=== PATIENT | male | born 1980 | race Caucasian/White ===

== ENCOUNTER → 2025-08-22 | Outpatient (CLI) | payer OTHER ==
[2025-08-22 13:55] LABS: PLATELET COUNT, AUTOMATED 279 10^3/uL (150-450)
[2025-08-22 14:24] LABS: HIV 1&2 SCREEN NEGATIVE (NEGATIVE)
[2025-08-22 14:33] LABS: HEPATITIS C VIRUS ABY INDEX < 0.02 INDEX (<0.8)
[2025-08-22 15:07] LABS: Trichomonas vaginalis (AMP) NOT DETECTED (NEGATIVE)
[2025-08-22 15:31] LABS: GC DNA AMPLIFICATION NEGATIVE (NEGATIVE)
== END ==
LOC: M PLALAB 10:21
PROVIDERS: ATTEND Advanced Practice Midwife
DX: Z34.91 Encounter for supervision of normal pregnancy, unspecified, first trimester (principal)